=== PATIENT | male | born 1970 | race Caucasian/White ===

== ENCOUNTER 2016-07-11 08:08 | Emergency (ER) | payer OTHER | END 2016-07-11 09:11 | disposition home or self-care (01) | LOC: FER 08:08 | DX: S39.012A Strain of muscle, fascia and tendon of lower back, initial encounter (principal); I10 Essential (primary) hypertension; F17.200 Nicotine dependence, unspecified, uncomplicated; Y93.89 Activity, other specified | CPT/HCPCS: 72100; J1100 ==